=== PATIENT | female | born 1995 | race Two or more races ===

== ENCOUNTER 2020-03-24 16:17 | Emergency (ER) | payer OTHER ==
[~2020-03-24] VITALS: Ht 154.9 cm; Wt 63.5 kg
[2020-03-24 16:32] VITALS: BP 121/75
[2020-03-24] MEDS ORDERED: ACETAMINOPHEN 325 MG TAB PO ONE (16:45)
== END 2020-03-24 17:43 | disposition home or self-care (01) ==
LOC: ER 16:17
DX: S46.912A Strain of unspecified muscle, fascia and tendon at shoulder and upper arm level, left arm, initial encounter (principal); R51 Headache; V49.9XXA Car occupant (driver) (passenger) injured in unspecified traffic accident, initial encounter; Y93.89 Activity, other specified; Y92.488 Other paved roadways as the place of occurrence of the external cause; Y99.8 Other external cause status
CPT/HCPCS: 70450; 73030